=== PATIENT | female | born 1960 | race Caucasian/White ===

== ENCOUNTER → 2017-04-26 | Outpatient (CLI) | payer OTHER ==
[~2017-04-26] VITALS: Ht 172.7 cm; Wt 125.2 kg
[~2017-04-26] MED LIST: COLACE50 MG PO; COZAAR50 MG PO; Colace PO; Combivent IH; Coumadin Protocol PO; DuoNeb IH; LEVOFLOXACIN750 MG; LISINOPRIL20 MG; ONDANSETRON ODT8 MG; PERCOCET 5/31 TABLET PO; PRINIVIL20 MG PO; ZOFRAN8 M1 PO
== END | disposition home or self-care (01) ==
LOC: AMB 04-05 08:00
DX: Z12.11 Encounter for screening for malignant neoplasm of colon (principal); D12.3 Benign neoplasm of transverse colon; D12.4 Benign neoplasm of descending colon; D12.5 Benign neoplasm of sigmoid colon; K63.5 Polyp of colon; K64.8 Other hemorrhoids; Z86.010 Personal history of colon polyps; I10 Essential (primary) hypertension; E66.01 Morbid (severe) obesity due to excess calories; Z68.41 Body mass index [BMI] 40.0-44.9, adult; Z80.0 Family history of malignant neoplasm of digestive organs
CPT/HCPCS: 88305; 93005; J2250; J3010